=== PATIENT | female | born 1980 | race Caucasian/White ===

== ENCOUNTER 2023-04-15 15:30 | Emergency (ER) | payer SELFPAY ==
[~2023-04-15] VITALS: Ht 160 cm; Wt 77.1 kg
[2023-04-15] MEDS ORDERED: Norco 5-325 Ta1 EACH PO (18:16)
[2023-04-15 18:30] VITALS: BP 118/64
== END 2023-04-15 19:00 | disposition home or self-care (01) ==
LOC: ER 15:30
DX: S82.841A Displaced bimalleolar fracture of right lower leg, initial encounter for closed fracture (principal); W01.0XXA Fall on same level from slipping, tripping and stumbling without subsequent striking against object, initial encounter
CPT/HCPCS: 27810; 73600; 73610; 96374-59; 99283-25; A9270; J1885; J3010

== ENCOUNTER 2024-06-14 15:56 | Emergency (ER) | payer BC ==
[~2024-06-14] VITALS: Ht 160 cm; Wt 70.3 kg
[~2024-06-14 15:56] MED LIST: Norco 5-325 Ta1 EACH PO
[2024-06-14 15:59] VITALS: BP 137/92
[2024-06-14] MEDS ORDERED: LORazepam 1 MG Tab PO ONE (17:20)
== END 2024-06-14 17:55 | disposition home or self-care (01) ==
LOC: ER 15:56
DX: F41.0 Panic disorder [episodic paroxysmal anxiety] (principal); F10.90 Alcohol use, unspecified, uncomplicated
CPT/HCPCS: 99282; A9270